=== PATIENT | female | born 1985 | race African-American/Black ===

== ENCOUNTER 2020-01-17 16:46 | Outpatient (RCR) | payer OTHER, SELFPAY ==
[2019-11-26 18:27] VITALS: BP 117/67; PULSE 75
[2019-12-06 19:17] VITALS: BP 108/64; PULSE 75
[2019-12-10 18:00] LABS: Glucose Point of Care 69 (65-105)
[2019-12-10 18:13] VITALS: BP 111/63; PULSE 71
--- NOTE | 2019-12-10 18:25 | PC.NURSE ---
dr dobbs called and given pt report. dr dobbs informed of reactive tracing. informed of pt c/o fatigue and headache, as well as informed of pt blood sugar of 69. dr dobbs informed pt requested to go home and eat dinner and that pt states pt feels safe to drive home. dr dobbs informed of pt increase in insulin from 4 units to 6 units at night starting tonight. discharge orders received.
[2019-12-13 18:12] VITALS: BP 113/62; PULSE 94
[2019-12-17 17:42] VITALS: BP 107/62; PULSE 76
[2019-12-25 16:03] VITALS: BP 118/73; PULSE 82
[2019-12-28 15:09] VITALS: BP 107/68; PULSE 88
[2019-12-31 17:40] VITALS: BP 114/62; PULSE 69
[2020-01-03 17:41] VITALS: BP 106/65; PULSE 90
[2020-01-07 17:15] VITALS: BP 115/64
[2020-01-10 17:54] VITALS: BP 113/67; PULSE 90
[2020-01-14 17:27] VITALS: BP 112/62; PULSE 91
[2020-01-17 17:39] VITALS: BP 118/63; PULSE 74
== END 2020-01-27 08:38 | disposition home or self-care (01) ==
LOC: ANHOBOP 16:46
PROVIDERS: PCP Student in an Organized Health Care Education/Training Program; Visit Provider Obstetrics & Gynecology Gynecology
DX: O24.419 Gestational diabetes mellitus in pregnancy, unspecified control (principal); Z3A.31 31 weeks gestation of pregnancy; Z3A.32 32 weeks gestation of pregnancy; Z3A.33 33 weeks gestation of pregnancy; Z3A.34 34 weeks gestation of pregnancy; Z3A.35 35 weeks gestation of pregnancy; Z3A.36 36 weeks gestation of pregnancy; Z3A.37 37 weeks gestation of pregnancy; Z3A.38 38 weeks gestation of pregnancy
CPT/HCPCS: 59025

== ENCOUNTER 2020-01-20 06:38 | Inpatient (IN) | payer OTHER, SELFPAY ==
[2020-01-20] VITALS (117 sets, daily range): BP systolic 74–155; BP diastolic 43–108; PULSE 61–145; RESP 16; TEMP 36.1–36.6; O2SAT 84–100; BMI 32.0
[2020-01-20 07:23] LABS: Glucose Point of Care 108 (65-105)
[2020-01-20 07:27] LABS: Basophils Percent Auto 0.1 % (0.2-1.2); Eosinophils Percent Auto 0.6 % (0-4.4); Hematocrit 42.9 % (37.0-47.0); Hemoglobin 13.3 g/dL (12.0-15.0); Immature Granulocyte Absolute 0.03 K/mm3 (0.00-0.031); Immature Granulocyte Percent A 0.4 % (0-0.5); Lymphocytes Absolute Auto 2.46 K/mm3 (0.9-3.2); Lymphocytes Percent Auto 34.2 % (18.3-44.2); Mean Corpuscular Hemoglobin 23.8 pg (26-34); Mean Corpuscular Volume 76.6 fl (80-100); Mean Platelet Volume 11.1 fl (7.4-10.4); Monocytes Absolute Auto 0.4 K/mm3 (0.1-0.6); Monocytes Percent Auto 6.1 % (2.6-8.5); Neutrophils Absolute Auto 4.2 K/mm3 (1.3-6.7); Neutrophils Percent Auto 58.6 % (45.5-73.1); Platelet Count Result 230 k/mm3 (150-375); Red Cell Distribution Width 15.1 % (11.5-14.5); White Blood Count 7.2 K/mm3 (4.5-10.0)
[2020-01-20] MEDS: OXYTOCIN 30 UNITS/NS 500 ML 30 UNITS/500 ML BAG IV CONT (07:31)
[2020-01-20] MEDS: AMPICILLIN 2 GM/NS 100 ML 2 GM/100 ML BAG IVPB (07:32)
[2020-01-20] MEDS: LACTATED RINGERS 1,000 ML 125 ML IV CONT ×4 (07:32→14:50)
--- NOTE | 2020-01-20 07:44 | LDADM ---
This patient, Lex Meeks, was admitted to Labor/Delivery/Recovery 108 on 01/20/20 at 06:38. Plans for labor, pain management and were discussed with patient. Patient/family oriented to hospital policies and general routines including ID bracelet, bed and alarms, visiting hours, pain management, procedures, bathroom and other care routines, personal items, smoking policy, room service/diet and guest tray routines, infant security routines, and visiting hours. Patient/Family are encouraged to report perceived risks to care and to ask questions if they do not understand what they are told or what they should do. See OBIX for further documentation.
[2020-01-20 09:26] LABS: Rapid Plasma Reagin Non-Reactive (NonReactive)
[2020-01-20] MEDS: AMPICILLIN 1 GM/NS 50 ML 1 GM/50 ML BAG IVPB (11:19)
[2020-01-20 11:30] LABS: Glucose Point of Care 67 (65-105)
--- NOTE | 2020-01-20 11:59 | WPDOBADMIT ---
Obstetrics - Admit Note Admission Note: record reviewed. No pertinent additions to the history and/or any subsequent changes in the physical findings that are not consistent with the expected course of the were found. Additions to the history and/or subsequent changes in the physical findings follow. None.Here for MIL. Cervix 450/-2 AROM with thick meconium. FHTs reassuring
--- NOTE | 2020-01-20 12:35 | WPDANESEPPF ---
Anes - Initial Pre Proc Eval Date/Time: 01/20/20 12:35 Surgeon: Nancie Walter MD Pre Op Diagnosis: Induction of Labor Patient Data Age: 35 Gender: F Height: Weight: Last Vital Signs Temp 36.6 C 01/20/20 11:23 Pulse 102 H 01/20/20 12:34 BP 93/62 L 01/20/20 12:34 Pulse Ox 100 01/20/20 12:33 Allergies Allergy/AdvReac Type Severity Reaction Status Date / Time No Known Allergies Allergy Verified 12/28/19 15:05 Home Medications Medication Instructions Recorded Confirmed Type PNV cmb#95-ferrous fumarate-FA 1 tablet PO DAILY 12/25/19 01/20/20 History [] aspirin [Aspir-81] 81 mg PO DAILY 12/25/19 01/20/20 History calcium carbonate [Calcium 600] 600 mg PO DAILY 12/25/19 01/20/20 History ergocalciferol (vitamin D2) 50,000 unit PO WEEKLY 12/25/19 01/20/20 History [Vitamin D2] ferrous sulfate 325 mg PO DAILY 12/25/19 01/20/20 History insulin NPH isoph U-100 human 8 unit SUBCUT HS 12/25/19 01/20/20 History [Novolin N NPH U-100 Insulin] Laboratory Tests 01/20/20 01/20/20 01/20/20 07:17 07:19 07:19 WBC 7.2 K/mm3 K/mm3 (4.5-10.0) RBC 5.60 M/mm3 H M/mm3 (4.2-5.4) Hgb 13.3 g/dL g/dL (12.0-15.0) Hct 42.9 % % (37.0-47.0) MCV 76.6 fl L fl (80-100) MCH 23.8 pg L pg (26-34) MCHC 31.0 g/dl L g/dl (32-36) RDW 15.1 % H % (11.5-14.5) Plt Count 230 k/mm3 k/mm3 (150-375) MPV 11.1 fl H fl (7.4-10.4) Immature Gran % (Auto) 0.4 % % (0-0.5) Neut % (Auto) 58.6 % % (45.5-73.1) Lymph % (Auto) 34.2 % % (18.3-44.2) [place] % (Auto) 6.1 % % (2.6-8.5) Eos % (Auto) 0.6 % % (0-4.4) Baso % (Auto) 0.1 % L % (0.2-1.2) Lymph # (Auto) 2.46 K/mm3 K/mm3 (0.9-3.2) [place] # (Auto) 0.4 K/mm3 K/mm3 (0.1-0.6) Eos # (Auto) 0.0 K/mm3 K/mm3 (0-0.3) Baso # (Auto) 0.0 K/mm3 K/mm3 (0.0-0.1) Abs Immat Gran (auto) 0.03 K/mm3 K/mm3 (0.00-0.031) Absolute Neuts (auto) 4.2 K/mm3 K/mm3 (1.3-6.7) Absolute Nucleated RBC 0.0 K/mm3 K/mm3 (0.0-0.012) Nucleated RBC % 0.0 % % (0.0-0.2) POC Capillary Glucose 108 mg/dl mg/dl (65-105) RPR Non-reactive (NonReactive) Blood Type Antibody Screen 01/20/20 01/20/20 07:19 11:25 WBC RBC Hgb Hct MCV MCH MCHC RDW Plt Count MPV Immature Gran % (Auto) Neut % (Auto) Lymph % (Auto) [place] % (Auto) Eos % (Auto) Baso % (Auto) Lymph # (Auto) [place] # (Auto) Eos # (Auto) Baso # (Auto) Abs Immat Gran (auto) Absolute Neuts (auto) Absolute Nucleated RBC Nucleated RBC % POC Capillary Glucose 67 mg/dl mg/dl (65-105) RPR Blood Type B Positive Antibody Screen Negative Patient hx anesthesia problems: none Family hx anesthesia problems: none PMFSH Past Medical History Medical History (Updated 01/20/20 @ 12:35 by Piero Plata MD) Diabetes Family History Family History Mother Hypertension Father Hypotension Sibling Asthma Social History Social History Smoking status: Never smoker Second hand tobacco smoke exposure: No Alcohol intake: current Substance use: never Gender identity (if verbalized by the patient): Female Spiritual care concerns: No Anes - Eval Final PreProcedure Day of Procedure 01/20/20 12:35 Patient weight: obese Heart: regular rate and rhythm Lungs: clear to auscultation Neurological: alert and oriented ASA classification: III Emergent: no An
[2020-01-20] MEDS: PHENYLEPHRINE 1,000 MCG/10 ML SYRINGE 100 MCG IV PUSH (13:02)
--- NOTE | 2020-01-20 15:55 | PM.OBPRVD ---
OB - Delivery Note Procedure Delivery date: 01/20/20 Procedure: events: Gestational Diabetes Intrapartal events: None Induction method: AROM and per pitocin protocol Delivery monitor: external FHT and external uterine Route of delivery: Laceration description: None Specimen: Yes (placenta) Estimated blood loss (mL): 100 Anesthesia type: Epidural Disposition: floor Narrative: nuchal cord x 1 delivered through no pushing and infant delivered spontaneously [place] Baby Weeks of gestation at delivery: 39 Infant gender: Male presentation: vertex Placenta delivery description: Spontaneous cord vessel description: 3 Vessels score one minute: 8 score five minutes: 9
--- NOTE | 2020-01-20 15:57 | PM.OBDSVD ---
DS: Diagnosis Discharge Diagnosis (1) 39 weeks gestation of : Code(s): Z3A.39 - 39 weeks gestation of Status: Acute (2) GDM, class A2: Code(s): O24.419 - Gestational diabetes mellitus in , unspecified control Status: Acute (3) (normal spontaneous vaginal delivery): Code(s): O80 - Encounter for full-term uncomplicated delivery Status: Acute OB - DS: Summary OB Procedures : NST and Ultrasound OB Procedures Intrapartum: Spontaneous Vag Delivery OB Procedures: : None Peripartum Data Delivery Method: Natural Vaginal Laceration description: None complications: none Status at Discharge Functional status at discharge: independent ambulation Overall status at discharge: patient is progressing back to baseline Time Spent with Patient Time attestation: Total time spent providing and/or coordinating discharge services: DS: Data Data Completed and Pending Labs on day of discharge: Labs from last 24 hours 01/20/20 01/20/20 01/20/20 11:25 07:19 07:19 WBC RBC Hgb Hct MCV MCH MCHC RDW Plt Count MPV Immature Gran % (Auto) Neut % (Auto) Lymph % (Auto) [place] % (Auto) Eos % (Auto) Baso % (Auto) Lymph # (Auto) [place] # (Auto) Eos # (Auto) Baso # (Auto) Abs Immat Gran (auto) Absolute Neuts (auto) Absolute Nucleated RBC Nucleated RBC % POC Capillary Glucose 67 RPR Non-reactive Blood Type B Positive Antibody Screen Negative 01/20/20 01/20/20 07:19 07:17 WBC 7.2 RBC 5.60 H Hgb 13.3 Hct 42.9 MCV 76.6 L MCH 23.8 L MCHC 31.0 L RDW 15.1 H Plt Count 230 MPV 11.1 H Immature Gran % (Auto) 0.4 Neut % (Auto) 58.6 Lymph % (Auto) 34.2 [place] % (Auto) 6.1 Eos % (Auto) 0.6 Baso % (Auto) 0.1 L Lymph # (Auto) 2.46 [place] # (Auto) 0.4 Eos # (Auto) 0.0 Baso # (Auto) 0.0 Abs Immat Gran (auto) 0.03 Absolute Neuts (auto) 4.2 Absolute Nucleated RBC 0.0 Nucleated RBC % 0.0 POC Capillary Glucose 108 RPR Blood Type Antibody Screen Discharge Plan Discharge Attending physician on discharge: Nancie Walter Consulting providers: Piero Plata Discharging Clinician: Nancie Walter Anticipated Discharge Date/Time: 01/22/20 07:59 Patient Disposition: Home, Self-Care Activity: pelvic rest Diet: regular Discharge Instructions: Education: Mom and Baby Guide Given to: Mother Follow-Up: Call your delivering provider's office for an appointment to be seen in: 6 Weeks Mom and baby should come to the [facility] for the follow-up appointment. Appointment Date/Time: January 23, 2020 at 10:00 am What to expect at your follow-up visit: Blood Pressure Check Call [phone] if you are unable to keep your appointment time. BREAST CARE: 1. Wear a snug supportive bra. 2. For engorgement discomfort: Breast Feeding: A. Apply warm moist washcloths B. Express milk as needed to relieve engorgement C. Wear loose clothing Bottle Feeding: A. May apply ice packs 3. For sore nipples: A. Identify correct latch-on B. Apply warm moist washcloths before and after nursing C. Air dry nipples after nursing D. May apply Lansinoh cream to nipples /PERINEAL CARE: 1. Until bleeding stops, use your hoda bottle after urinating 2. Change your pad frequently throughout the day 3. You may take sitz baths several times a day (fill your bathtub with warm water and soak for 20 minutes.) Do NOT bathe in the water 4. No tub baths until seen by your physician - You may shower ACTIVITY: 1. Rest as much as possible. 2. Do not exercise or lift anything heavier than your baby (such as laundry or other children.) 3. Avoid stairs or driving as much as possible. 4. Do not put an
[2020-01-20 16:05] LABS: Glucose Point of Care 45 (65-105)
[2020-01-20 16:05] LABS: Glucose Point of Care 47 (65-105)
[2020-01-20] MEDS: OXYTOCIN 30 UNITS/NS 500 ML 30 UNITS/500 ML BAG 125 UNITS IV CONT (16:27)
[2020-01-20] MEDS: WITCH HAZEL 40 PADS 1 PAD TOPICAL (18:49)
[2020-01-20] MEDS: IBUPROFEN 600 MG TABLET PO (18:49)
[2020-01-20] MEDS: BENZOCAINE 20% AER SPR (*SP) 56 GM CAN 1 SPRAY TOPICAL (18:49)
--- NOTE | 2020-01-20 19:00 | OBPPTRN ---
Patient transferred to post room #283 via wheelchair with in crib. Support person present. Oriented to unit, room, information board, rooming in, admission packet and security measures. Patient verbalizes understanding.
[2020-01-21] MEDS: IBUPROFEN 600 MG TABLET PO ×3 (00:08→16:32)
[2020-01-21 05:37] LABS: Hemoglobin 11.1 g/dL (12.0-15.0)
--- NOTE | 2020-01-21 07:15 | PC.NURSE ---
PT introductions made and plan of care discussed per post , pain management, daily care activities breast feeding, and pending discharge to home. PT verbalized understanding of such care.
--- NOTE | 2020-01-21 07:38 | PM.OBPNVD ---
OB - PN: Subj Subjective Date/time seen: 01/21/20 07:38 Patient comments: no complaints and pain well controlled baby status: doing well and nursing well OB - PN: Obj Data Labs CBC & Chem 7: 01/21/20 04:24 Labs: Laboratory Results - last 24 hr 01/20/20 01/20/20 01/20/20 07:19 07:19 11:25 Hgb Hct POC Capillary Glucose 67 RPR Non-reactive Blood Type B Positive Antibody Screen Negative 01/20/20 01/20/20 01/21/20 14:47 15:32 04:24 Hgb 11.1 L Hct 35.0 L POC Capillary Glucose 47 L* 45 L* RPR Blood Type Antibody Screen OB - PN A/P Assessment and Plan (1) (normal spontaneous vaginal delivery): Code(s): O80 - Encounter for full-term uncomplicated delivery Status: Acute Assessment and Plan: Doing well. Continue care. Plans oc's until Mirena (2) GDM, class A2: Code(s): O24.419 - Gestational diabetes mellitus in , unspecified control Status: Acute Assessment and Plan: plan 6 wk 2 hour GTT Time Spent With Patient Time: Total time spent is greater than 50% in coordination of care (as documented) at patient's floor/unit and/or counseling patient: Exam : Bimanual exam- vagina & uterus: other (Uterus firm, nt @U)
[2020-01-21 07:55] VITALS: BP 113/72; PULSE 71; RESP 16; TEMP 36.6; O2SAT 100
[2020-01-21] MEDS: DOCUSATE SODIUM 100 MG CAPSULE PO ×2 (09:42→16:32)
[2020-01-21 09:44] VITALS: PULSE 71; RESP 16; O2SAT 100
[2020-01-21] MEDS: MULTIVIT/MIN/PREN/FOL AC/IRON TABLET 1 TAB PO (09:44)
[2020-01-21] MEDS: LANOLIN (LANSINOH) 7.5 GM CREAM 1 APPLIC TOPICAL (09:45)
--- NOTE | 2020-01-21 14:12 | WPDANLDPN2 ---
Anes-Prog Note L&D Date/Time: 01/21/20 14:12 Comfortable throughout: labor and delivery Neuraxial method: epidural Epidural/Spinal procedure site: clean & non-tender Neuro status: Neuro function grossly intact. Cardiovascular status: normal Respiratory status: normal Airway patency: baseline Mental status: baseline Post-Op hydration status: normal Vital Signs: Last Vital Signs Temp 36.6 C 01/21/20 07:55 Pulse 71 01/21/20 09:44 Resp 16 01/21/20 09:44 BP 113/72 01/21/20 07:55 Pulse Ox 100 01/21/20 09:44 Post-procedural complaints: none Patient feedback: Patient satisfied with anesthetic care.
--- NOTE | 2020-01-21 14:15 | PC.NURSE ---
Observed mother is able to independently latch with appropriate positioning/alignment. She denies any nipple discomfort, is feeding as required and waking to feed if needed. is breast and bottle feeding by mother's choice. is currently meeting outcomes for weight, output, jaundice and feeding frequencies. Mother states she feels confident to continue effective at home. Reviewed transition to breast milk, signs of adequate intake, and engorgement/relief. Instructed to call ICP if intake/output less than required. Reviewed regular medications mother is taking. Information provided per Jackelin. Reviewed community resources on the [facility] website and in the Mom/Baby guide. Information on outpatient services provided. Mother has no further questions at this time.
--- NOTE | 2020-01-21 16:00 | PC.NURSE ---
Patient was given the opportunity to view the discharge video Mother & Baby Care, The First Two Weeks and to ask questions. Patient declined viewing the video and has been given the mother/baby guide for home reference.
--- NOTE | 2020-01-21 17:06 | PC.NURSE ---
Self care and infant care discharge instructions given to parents including follow up visit date and time. Mother verbalized understanding. No questions or complaints voiced. Pt. care taken over from Anders Maddox RN at 1500.
[2020-01-23 10:47] VITALS: BP 123/72; PULSE 71; RESP 18; TEMP 37.2
== END 2020-01-21 18:51 | disposition home or self-care (01) | DRG 807 ==
LOC: ANHLDR 16:00 → ANHOB2 19:01
PROVIDERS: Admitting Provider Obstetrics & Gynecology Gynecology; PCP Student in an Organized Health Care Education/Training Program; Visit Provider Obstetrics & Gynecology Gynecology
DX: O24.429 Gestational diabetes mellitus in childbirth, unspecified control (principal); Z37.0 Single live birth; Z3A.39 39 weeks gestation of pregnancy; O99.824 Streptococcus B carrier state complicating childbirth; O99.214 Obesity complicating childbirth; E66.9 Obesity, unspecified; O36.8330 Maternal care for abnormalities of the fetal heart rate or rhythm, third trimester, not applicable or unspecified; O77.0 Labor and delivery complicated by meconium in amniotic fluid
CPT/HCPCS: 36415; 85014; 85018; 85025; 86592; 86850; 86900; 86901; 88307; A9270; J0290; J2370; J2590; J2795; J7120

== ENCOUNTER 2024-09-24 17:09 | Emergency (ER) | payer OTHER, SELFPAY ==
--- NOTE | 2024-09-24 17:20 | ED_ITS ---
HPI - Extremity Injury (Upper) General Chief Complaint: Extremity Problem,Nontraumatic Stated Complaint: Right Arm Pain Time Seen by Provider: 09/24/24 17:13 Source: patient Mode of arrival: ambulatory Limitations: no limitations History of Present Illness HPI narrative: Patient is a 39-year-old female who presents with right upper arm pain after having a cramp lasting over an hour today. Patient states she did do upper body workout this morning. Arm is now sore but not currently cramping or spasming. Patient is concerned will happen again. Has not taken anything for pain. Denies any numbness, tingling or weakness to distal portion of the arm. Related Data Home Medications ?Medication ?Instructions ?Recorded ?Confirmed ?Last Taken ?Type ergocalciferol (vitamin D2) 1,250 50,000 unit PO WEEKLY 12/25/19 01/20/20 01/17/20 10:00 History mcg (50,000 unit) capsule (Vitamin D2) ferrous sulfate 325 mg (65 mg 325 mg PO DAILY 12/25/19 01/20/20 01/19/20 10:00 History iron) tablet vit no.95-ferrous 1 tablet PO DAILY 12/25/19 01/20/20 01/19/20 10:00 History fumarate 28 mg-folic acid 800 mcg tablet () Allergies Allergy/AdvReac Type Severity Reaction Status Date / Time No Known Allergies Allergy Verified 12/28/19 15:05 Review of Systems Review of Systems: All systems reviewed & are unremarkable except as noted in HPI and below Constitutional: Constitutional: Denies body ache(s), Denies chills, Denies fatigue, Denies fever(s), Denies headache(s), Denies malaise and Denies weakness Eyes: Eyes: Denies blurry vision, Denies irritation and Denies loss of vision ENT: Denies otalgia, Denies headache(s), Denies nasal discharge, Denies sinus pain and Denies sore throat Cardiovascular: Cardiovascular: Denies chest pain, Denies irregular heart rhythm and Denies dyspnea Respiratory: Respiratory: Denies dyspnea Gastrointestinal: Gastrointestinal: Denies abdominal pain, Denies melena, Denies hematochezia, Denies diarrhea, Denies nausea and Denies vomiting Musculoskeletal: Musculoskeletal: Denies back pain, Denies myalgias and Reports arthralgias Integumentary/Breasts: Skin/Breast: Denies pruritus and Denies rash Neurologic: Denies headache(s), Denies loss of vision and Denies weakness Psychiatric: Psychiatric: Reports no additional psychiatric complaints Endocrine: Endocrine: Denies fatigue PMFSH Past Medical History Medical History Diabetes Family History Family History Mother Hypertension Father Hypotension Sibling Asthma Social History Social History Smoking status: Never smoker Second hand tobacco smoke exposure: No Alcohol intake: current Substance use: never Gender identity (if verbalized by the patient): Female Spiritual care concerns: No Comments At time of signature, agree with nursing past medical, surgical, social and family history. There is no relevant family history pertinent to the presenting complaint. Exam Const: General: cooperative, healthy appearing, comfortable, no acute distress and well nourished Nutritional Appearance: well nourished Orienta tion/consciousness: patient oriented x3 Limitations: no limitations HENMT: Head: normal to inspection, normocephalic and atraumatic Ears: hearing grossly normal bilaterally and external ears normal Face/Nose/Sinus: Normal external nose present, normal facial exam and face symmetric Face and sinus: normal facial exam and face symmetric Mouth: Yes lip normal Eyes: General: appearance normal, both eyes and all related structures Alignment and Position: alignment normal and position normal Periorbital: periorbital findings normal Eyelids: eyelids normal Pupils: Equal, round and reactive pupils present EOM: EOMs intact bilaterally Neck: Neck: normal visual inspection, full ROM and supple Chest: Chest palpation & inspection: normal inspection of the chest Resp: Effort & Inspection: normal respiratory effort and able to speak in complete sentences Auscultation: clear to auscultation bilaterally Cardio: Rate: regular rate Rhythm: regular rhythm Heart sounds: S1 normal heart sound present and S2 normal heart sound present GI: Inspection: normal to inspection Skin: General skin exam: normal color and no rashes or lesions noted Neuro: General: patient oriented x3 and moves all extremities Cranial nerves: Yes Equal, round and reactive pupils present Speech: normal speech Gait exam (Neuro): Normal gait present Extrem: General: normal to inspection, full ROM and no edema Right upper extremity: shoulder/upper arm normal to inspection, tenderness other (proximal tricep muscle) and normal ROM; no swelling, no ecchymosis and no unusual warmth and elbow/forearm normal to inspection and normal ROM; no tenderness and no swelling Psych: Appearance: grossly normal and well kempt Mental Status: mental s tatus grossly normal Speech and movement: Normal speech and movement present Affect: normal affect Attitude: cooperative Thought process: Normal thought process present Course Course Emergency Course: Patient is aware of diagnosis, understands and agrees to treatment plan. Anticipatory guidance given. Patient agrees to follow-up as directed and is aware of reasons to seek care at the emergency department. Portions of this record may have been created with voice recognition software Level of Care: Express Care Visit Vital Signs Vital signs: Reviewed MDM - Extremity Injury (Upper) MDM Narrative Medical decision making narrative: Patient declined any numbness tingling or weakness. Exam strength and sensation equal bilaterally. Discussed muscle relaxer use. Pt well hydrated appearing, in no respiratory distress, hemodynamically stable. Recommend supportive care. The patient is stable at time of discharge the clinical impression was discussed and the patient was given the opportunity to ask questions, which were addressed as completely as possible given the information available at present. Anticipatory guidance and return to care precautions were discussed and the importance of primary care follow-up was stressed and encouraged. The patient voiced understanding of the plan, indications to return, and the need for follow-up. Exam findings show no acute concerns or changes Patient is appropriate for outpatient treatment and follow-up. Differential Diagnosis Differential diagnosis: Likely fracture of humerus and other (Tricep strain, tricep tear, muscle spasm) Medical Records Attestation: I reviewed the patient's medical records. Discharge Plan Discharge Clinical Impression: Strain of right triceps Patient Disposition: Home, Self-Care Condition: Stable Instructions: Muscle Strain (ED) Additional Instructions: Avoid activities that cause pain until the pain subsides. Ice to the area 20-30 minutes 4-6 times a day Elevate above heart Take muscle relaxer as needed for cramping For pain, you may take: Tylenol 650-1000mg by mouth every 4-6 hours. Do not exceed 4000mg in 24 hours. Advil (Ibuprofen) 600 mg by mouth every 6 hours. Do not exceed 2400mg in 24 h ours. 8 AM: Tylenol 11 AM: Ibuprofen 2 PM: Tylenol 5 PM: Ibuprofen 8 PM: Tylenol 11 PM: Ibuprofen 2 AM: Tylenol 5 AM: Ibuprofen Follow up with your primary care provider if the condition is not improving within 1 week. If the condition worsens with numbness, tingling, decrease sensation with weakness seek treatment in the emergency room immediately. Patient Language: [place] Prescriptions: New baclofen 10 mg tablet 10 mg PO BID Qty: 10 0RF No Action norethindrone (contraceptive) 0.35 mg tablet 0.35 mg PO DAILY Qty: 1 1RF ferrous sulfate 325 mg (65 mg iron) Tablet 325 mg PO DAILY ergocalciferol (vitamin D2) [Vitamin D2] 1,250 mcg (50,000 unit) Capsule 50,000 unit PO WEEKLY PNV cmb#95-ferrous fumarate-FA [] 28 mg iron- 800 mcg Tablet 1 tablet PO DAILY Follow-up/Referrals: PHYSICIAN,MANAGER EVENT [Primary Care Provider] - Stand Alone Forms: Work/School Release IP Time of Disposition: 17:55
[2024-09-24 17:24] VITALS: BP 131/80; PULSE 70; RESP 16; TEMP 36.4; O2SAT 99
== END 2024-09-24 18:00 | disposition home or self-care (01) ==
PROVIDERS: Emergency Provider Nurse Practitioner Family
DX: S46.311A Strain of muscle, fascia and tendon of triceps, right arm, initial encounter (principal); X58.XXXA Exposure to other specified factors, initial encounter; E11.9 Type 2 diabetes mellitus without complications
CPT/HCPCS: 99213; G0463